=== PATIENT | male | born 1960 | race Caucasian/White ===

== ENCOUNTER → 2017-05-25 | Outpatient (CLI) | payer MEDICARE, OTHER ==
[~2017-05-25] MED LIST: ACID CONTROL150 MG PO; AMBIEN10 MG PO; AMOXICILLIN500 M1 PO; ASPIRIN81 M2 PO; BACTRIM DS TABL1 TA1 PO; BENADRYL25 M3 PO; CHEMO; EPIVIR HBV100 M1 PO; GLIMEPIRIDE1 M1 PO; HYDROCHLOROTH12.5 MG PO; IBUPROFEN800 MG PO; LEVOTHYROXINE25 MCG PO; LEVOTHYROXINE50 MCG PO; LEVOTHYROXINE75 MCG PO; LISINOPRIL PO; LORTAB 7.51 TAB PO; METFORMIN HCL500 M1 PO; METFORMIN PO; MULTIVITAMIN1 UDCAP PO; MUPIROCIN 2% TOP; NORCO1 TAB 10/3 PO; NORVASC PO; PEPCID AC20 M2 PO; PRAVASTATIN SOD10 MG PO; PRILOSEC40 MG PO; ROBAXIN 750750 M1 PO; TRADJENTA5 MG PO; XANAX0.5 MG PO; ZANAFLEX PO; ZYRTEC10 M2 PO; [UNRECOGNIZED DRUG - OTHER] TOP
--- NOTE | ~2017-05-25 | CR151 ---
[facility]. [facility] A Service of [facility] & [facility] RADIOLOGY TEXT RESULTS PATIENT: FREYA JUDGE LOCATION: [facility] : 56 UNIT #: [id number] AGE: [address]: Cherrie Bowen GENERATION MANAGER SEX: M ORDER DR: [id number] [address] [address] [id number] O MR#: [id number] Acc #: [id number] NAME: FREYA JUDGE : 1960 SEX: M STUDY DATE/TIME: 05/25/2017 9:43 UNIT: [facility] ROOM: STUDY DESCRIPTION: CR Hip Min 2 Views Rt Attending Physician: Cherrie Bowen A.P.R.N. Referring Physician: Cherrie Bowen A.P.R.N. Ordering Physician: Cherrie Bowen A.P.R.N. Primary Care Physician: Cherrie Bowen A.P.R.N. MEDICAL IMAGING REPORT This report is preliminary unless electronic signature is present. EXAM Right hip 2 views 05/25/2017 HISTORY Right hip pain and low back pain for 2 months. No known injury. FINDINGS 2 views of the right hip demonstrate no fracture. There is degenerative change with axial narrowing of the hip joints bilaterally, left greater than right. The bones are normally mineralized. There is no soft tissue abnormality. IMPRESSION Axial degenerative narrowing of the hip joints bilaterally. No acute abnormality. Dictated by... Priyank Singleton M.D. THIS IS AN ELECTRONICALLY VERIFIED REPORT Priyank Singleton M.D. at 05/28/2017 7:29 AM KRT/anoop TD: 05/25/2017 22:05 JOB #: [id number] MEDICAL IMAGING REPORT Page 1 of 1
--- NOTE | ~2017-05-25 | CR150 ---
[facility] A Service of [facility] RADIOLOGY TEXT RESULTS PATIENT: FREYA JUDGE LOCATION: [facility] : 56 UNIT #: [id number] AGE: [address]: Cherrie Bowen DIESEL MECHANIC SEX: M ORDER DR: [id number] [place] [id number] O MR#: [id number] Acc #: [id number] NAME: FREYA JUDGE : 1960 SEX: M STUDY DATE/TIME: 05/25/2017 9:43 UNIT: [facility] ROOM: STUDY DESCRIPTION: CR Hip Min 2 Views Lt Attending Physician: Cherrie Bowen A.P.R.N. Referring Physician: Cherrie Bowen A.P.R.N. Ordering Physician: Cherrie Bowen A.P.R.N. Primary Care Physician: Cherrie Bowen A.P.R.N. MEDICAL IMAGING REPORT This report is preliminary unless electronic signature is present. EXAM Pelvis and left hip 2 views 05/25/2017 at 9:43 a.m. COMPARISON No correlative studies. HISTORY Order states low back and bilateral hip pain. History sheet states pain from back into hips. Wear and tear with muscle spasms. Symptoms for months. No trauma reported. FINDINGS No fracture, dislocation, or evidence of femoral head avascular necrosis is noted. No arthritic changes are noted of the hips. There is L4-5 degenerative disc disease. See separate lumbar spine radiograph report. The calcification projecting over the coccyx near the midline is unchanged from of 2009 and of doubtful significance. IMPRESSION 1. Hips are unremarkable. Dictated by... Le Chisholm M.D. THIS IS AN ELECTRONICALLY VERIFIED REPORT Le Chisholm M.D. at 05/26/2017 9:52 AM YI/marco antonio TD: 05/25/2017 14:54 JOB #: [id number] [facility] A Service of [facility] & [facility] RADIOLOGY TEXT RESULTS PATIENT: FREYA JUDGE LOCATION: [facility] #: [id number] : 56 UNIT #: [id number] AGE: [address]: Cherrie Bowen SEX: M ORDER DR: MEDICAL IMAGING REPORT Page 1 of 1
--- NOTE | ~2017-05-25 | CR181 ---
[facility]. [facility] A Service of [facility] & [facility] RADIOLOGY TEXT RESULTS PATIENT: FREYA JUDGE LOCATION: [facility] : 56 UNIT #: [id number] AGE: [address]: Cherrie Bowen YARD SWITCHER SEX: M ORDER DR: [id number] [place] [id number] O MR#: [id number] Acc #: [id number] NAME: FREYA JUDGE : 1960 SEX: M STUDY DATE/TIME: 05/25/2017 9:43 UNIT: [facility] ROOM: STUDY DESCRIPTION: CR Lumbar Spine 2 or 3 Views Attending Physician: Cherrie Bowen A.P.R.N. Referring Physician: Cherrie Bowen A.P.R.N. Ordering Physician: Cherrie Bowen A.P.R.N. Primary Care Physician: Cherrie Bowen A.P.R.N. MEDICAL IMAGING REPORT This report is preliminary unless electronic signature is present. EXAM Lumbar spine 3 views 05/25/2017 HISTORY Low back pain and bilateral hip pain for 2 months. No known injury. FINDINGS 3 views of the lumbar spine demonstrate no fracture. The posterior vertebral body line is intact and there is no anterolisthesis or retrolisthesis. There is degenerative change with mild disc space narrowing at L4-5 and L5-S1. Anterior osteophytes are seen from L3-L5 and there is degenerative change involving the articular facets. Mild atherosclerotic calcification of the abdominal aorta is noted. IMPRESSION Degenerative change in the lumbar spine. No acute abnormality. Dictated by... Priyank Singleton M.D. THIS IS AN ELECTRONICALLY VERIFIED REPORT Priyank Singleton M.D. at 05/28/2017 7:29 AM MEI/jose TD: 05/25/2017 22:26 JOB #: [id number] MEDICAL IMAGING REPORT Page 1 of 1
== END | disposition home or self-care (01) ==
LOC: SRAD 09:31
DX: M54.5 Low back pain (principal); M25.551 Pain in right hip; M25.552 Pain in left hip; M47.896 Other spondylosis, lumbar region; M16.0 Bilateral primary osteoarthritis of hip
CPT/HCPCS: 72100; 73502

== ENCOUNTER → 2017-06-25 | Day surgery (SDC) | payer MEDICARE, OTHER ==
--- NOTE | ~2017-06-25 | EKG ---
PATIENT: FREYA JUDGE UNIT #: [id number] Ventricular Rate: 59 BPM Atrial Rate: 59 BPM P-R Interval: 146 ms QRS Duration: 82 ms Q-T Interval: 440 ms QTC Calculation(Bezet): 435 ms P Penhook: 33 degrees Calculated R Penhook: -10 degrees Calculated T Penhook: 1 degrees Diagnosis Line: Sinus bradycardia Diagnosis Line: Nonspecific T wave abnormality Diagnosis Line: Abnormal ECG Diagnosis Line: When compared with ECG of 01-NOV-2012 13:08, Diagnosis Line: Nonspecific T wave abnormality, worse in Lateral Diagnosis Line: leads Diagnosis Line: Confirmed by JOSSY HAWTHORNE MD ([id number]) on Diagnosis Line: 06/25/2017 2:27:18 PM INTERPRETING MD: CHRISTOPH NIEVES
[2017-06-25 11:35] LABS: BASOPHIL% 0.8 % (0-2.5); EOSINOPHIL# 0.3 X10e3 (0-0.7); HEMATOCRIT 46.6 % (38.0-50.0); HEMOGLOBIN 15.7 gm/dL (13.0-16.0); LYMPHOCYTE# 1.7 X10e3 (1.0-3.5); LYMPHOCYTE% 26.6 % (17.0-45.0); MEAN CELL VOLUME 87.8 FL (83-96); MEAN CORPUSCULAR HEMOGLOBIN 29.5 PG (28-34); MEAN CORPUSCULAR HGB CONC 33.7 g/dL (30-36); MEAN PLATELET VOLUME 7.1 FL (6.5-11.5); MONOCYTE# 0.5 X10e3 (0-1.0); MONOCYTE% 8.2 % (3.0-12.0); NEUTROPHIL# 3.8 X10e3 (1.5-7.1); NEUTROPHIL% 60.4 % (40-75); PLATELET COUNT 192 X10e3 (140-420); RED BLOOD COUNT 5.31 X10e (3.90-5.60); RED CELL DISTRIBUTION WIDTH 13.7 % (11.0-15.5); WHITE BLOOD COUNT 6.3 X10e3 (4.0-10.5)
[2017-06-25 11:37] LABS: DIFF IND NO
[2017-06-25 12:10] LABS: ALBUMIN SERUM 4.3 g/dL (3.5-5.0); BUN/CREATININE RATIO 16.66; CALCIUM SERUM 9.4 mg/dL (8.4-10.2); CREATININE SERUM 0.9 mg/dL (0.6-1.4); GLOM FILT RATE Estimated 93.2 mL/min (>60); POTASSIUM 4.1 mmol/L (3.5-5.1); PROTEIN TOTAL SERUM 6.7 g/dL (6.0-8.3)
== END | disposition home or self-care (01) ==
LOC: COPS 06-22 14:00
PROVIDERS: Surgery
DX: Z12.11 Encounter for screening for malignant neoplasm of colon (principal); E03.9 Hypothyroidism, unspecified; K21.9 Gastro-esophageal reflux disease without esophagitis; M19.90 Unspecified osteoarthritis, unspecified site; E11.9 Type 2 diabetes mellitus without complications; I10 Essential (primary) hypertension; E78.5 Hyperlipidemia, unspecified; E78.00 Pure hypercholesterolemia, unspecified; K40.90 Unilateral inguinal hernia, without obstruction or gangrene, not specified as recurrent; Z87.891 Personal history of nicotine dependence; Z85.72 Personal history of non-Hodgkin lymphomas; Z86.19 Personal history of other infectious and parasitic diseases; Z86.010 Personal history of colon polyps; Z88.5 Allergy status to narcotic agent; Z88.8 Allergy status to other drugs, medicaments and biological substances; Z79.84 Long term (current) use of oral hypoglycemic drugs; Z79.82 Long term (current) use of aspirin; Z79.899 Other long term (current) drug therapy; Z98.890 Other specified postprocedural states
CPT/HCPCS: 80053; 82947; 85025; 93005; J2250

== ENCOUNTER → 2017-06-29 | Day surgery (SDC) | payer MEDICARE, OTHER ==
--- NOTE | ~2017-06-29 | OR ---
Unit #: [id number] #: [id number] Patient: FREYA JUDGE [id number] [address] [address] [id number] P MR#: [id number] NAME: FREYA JUDGE ROOM: Date of Procedure: 06/25/2017 Admission Date: 06/29/2017 Surgeon: Angel Maurer M.D. : 1960 Attending Physician: Angel Maurer M.D. Primary Care Physician: Cherrie Bowen A.P.R.N. OPERATIVE REPORT PREOPERATIVE DIAGNOSIS Perirectal abscess. POSTOPERATIVE DIAGNOSIS Perirectal pelvic abscess. PROCEDURE PERFORMED 1. Examination under anesthesia. 2. Incision and drainage and debridement of right deep perirectal abscess. ANESTHESIA General anesthesia. ESTIMATED BLOOD LOSS Minimal. IV FLUIDS 800 crystalloid. COMPLICATIONS None. INDICATIONS FOR PROCEDURE The patient is a 57-year-old gentleman, who comes in with perirectal pain. CT scan shows a 6 cm abscess deep in the pelvis. He presents for examination under anesthesia. DESCRIPTION OF PROCEDURE The patient was taken to the operating theater and placed in supine position. General anesthesia was induced. His perineum was then prepped and draped. He was placed in candy-cane stirrups. General inspection revealed a fullness at the right rectal sidewall. I aspirated this internally to got back purulence. I decided to drain this externally by making a 3 cm incision. I get into a pocket of purulence within the pelvic deep soft tissues. This measured approximately 4 cm x 5 cm. I broke up all loculations. Cultures were obtained. I then irrigated with normal saline, aspirated all fluids dry and packed with Betadine. The patient tolerated the procedure well and sent to recovery room in good condition. Dictated by... Unit #: [id number] #: [id number] Patient: FREYA JUDGE Carly Toth/yulisa TD: 06/25/2017 14:32 JOB #: [id number] OPERATIVE REPORT Page 1 of 1 X Olsofka,Angel N MD X PROCEDURE OPERATIVE NOTE
--- NOTE | ~2017-06-29 | OR ---
Unit #: [id number] #: [id number] Patient: FREYA JUDGE [id number] [address] [place], [place] [address] [id number] O MR#: [id number] NAME: FREYA JUDGE ROOM: Date of Procedure: 06/29/2017 Admission Date: 06/29/2017 Surgeon: Angel Maurer M.D. : 1960 Attending Physician: Angel Maurer M.D. Primary Care Physician: Cherrie Bowen A.P.R.N. OPERATIVE REPORT PREOPERATIVE DIAGNOSES Right inguinal hernia, possible umbilical ventral hernia. POSTOPERATIVE DIAGNOSIS Indirect right inguinal hernia. PROCEDURE PERFORMED Laparoscopic preperitoneal inguinal hernia repair of right indirect inguinal hernia. HOT WORKER Trevon Man M.D. ANESTHESIA General anesthesia. ESTIMATED BLOOD LOSS Minimal. IV FLUIDS 800 crystalloid. COMPLICATIONS None. INDICATIONS FOR PROCEDURE The patient is a 57-year-old gentleman with a bulge in his umbilicus, possible ventral hernia, and also bulge in his right groin consistent with an inguinal hernia. DESCRIPTION OF PROCEDURE The patient was taken to the operating theater and placed in supine position. General anesthesia was induced. His abdomen was prepped and draped. A 5-mm Optiview trocar was placed in the left upper quadrant without difficulty. The abdomen was insufflated to 15 mmHg with CO2. Under direct vision, I placed the patient in Trendelenburg, identified the right-sided indirect inguinal hernia, not incarcerated. No left-sided hernia. I also did not see a ventral hernia or umbilical hernia. The pneumoperitoneum was released. I then made an infraumbilical incision. A small incision was made in the anterior sheath. I created the preperitoneal space in the right side only using the AutoSuture balloon dissection system. I placed two 5-mm ports in the midline. I dissected Unit #: [id number] #: [id number] Patient: FREYA JUDGE the right groin, identifying the lateral space. The cord was skeletonized and the hernia sac reduced. I identified Lennox ligament. I placed a large 3DMax mesh into position. This was anteriolized and covered the defect with indirect and direct spaces very nicely. This was secured with a tacking device to Lennox ligament as well as lateral anterior musculature. Hemostasis was adequate. I released the pneumopreperitoneum with care taken to avoid the peritoneum sliding posterior to the mesh. Hemostasis was adequate. I then closed the fascia with 0 Vicryl and skin with 4-0 Vicryl. The patient tolerated the procedure well and sent to recovery room in good condition. Dictated by... Carly Toth/yulisa TD: 06/29/2017 13:36 JOB #: [id number] OPERATIVE REPORT Page 1 of 1 X Angel Maurer MD X PROCEDURE OPERATIVE NOTE
== END | disposition home or self-care (01) ==
LOC: CSUR 06:51
DX: K40.90 Unilateral inguinal hernia, without obstruction or gangrene, not specified as recurrent (principal); E03.9 Hypothyroidism, unspecified; K21.9 Gastro-esophageal reflux disease without esophagitis; M19.90 Unspecified osteoarthritis, unspecified site; I10 Essential (primary) hypertension; E78.5 Hyperlipidemia, unspecified; E78.00 Pure hypercholesterolemia, unspecified; E11.9 Type 2 diabetes mellitus without complications; Z79.82 Long term (current) use of aspirin; Z79.84 Long term (current) use of oral hypoglycemic drugs; Z88.6 Allergy status to analgesic agent; Z88.8 Allergy status to other drugs, medicaments and biological substances; Z79.899 Other long term (current) drug therapy; Z87.891 Personal history of nicotine dependence
CPT/HCPCS: 82947; C1781; J0330; J0690; J1100; J1644; J2250; J2405; J2550; J2710; J3010